=== PATIENT | female | born 1945 | race Caucasian/White ===

== ENCOUNTER 2016-11-21 17:44 | Emergency (ER) | payer SELFPAY ==
[~2016-11-21] VITALS: Ht 160 cm; Wt 58.0 kg
[2016-11-21 17:48] VITALS: Ht 160 cm; Wt 58.0 kg
[2016-11-21] MEDS ORDERED: POLY10DR19 BOTH EYES (18:03)
[2016-11-21] MEDS ORDERED: CETI10CA PO (18:03)
--- NOTE | 2016-11-21 18:20 | ERD ---
ER Documentation Chief Complaint Date/Time DATE: 11/21/16 TIME: 18:15 Chief Complaint RED ITCHY EYES HPI 71-year-old female with a past medical history of hypertension and diabetes who presents to the ED here with [id number] for bilateral eye itchiness 1 week. States that both of her eyes are itchy and she has watery discharge from her eyes. Denies headache or dizziness. Denies blurry vision and denies eye pain denies difficulty hearing or speaking. Denies syncopal episodes. Denies chest pain or cough or shortness of breath. Also complains of itchy throat and runny nose. Denies fever or chills. Her insurance is changed therefore she has not gone to her primary care provider for her symptoms. She states that her blood pressure and diabetes are within control. She denies polyuria or polydipsia or polyphagia. Denies abdominal pain, nausea, vomiting or diarrhea. She has no other complaints. Denies seizures or rashes per ROS All systems reviewed and are negative except as per history of present illness. Medications Home Meds Active Scripts Cetirizine Hcl* (Zyrtec*) 10 Mg Capsule, 10 MG PO DAILY, #30 TAB.CHEW Prov:JOHNNIE LEAL PA-C 11/21/16 Polymyxin B Sulfate-TMP* (Polymyxin B-TMP Eye Drops*) 10 Ml Drops, 1 DROP BOTH EYES QID for 7 Days, EA Prov:JOHNNIE LEAL PA-C 11/21/16 Allergies Allergies: Coded Allergies: No Known Allergy (Unverified , 11/21/16) PMhx/Soc Hx Cardiac Disorders: Yes (Hypertension) Hx Miscellaneous Medical Probl: Yes (Diabetes) Hx Alcohol Use: No Hx Substance Use: No Hx Tobacco Use: No Smoking Status: Never smoker FmHx Family History: No coronary disease, No diabetes, No other Physical Exam Vitals Vital Signs Date Time Temp Pulse Resp B/P Pulse Ox O2 Delivery O2 Flow Rate FiO2 11/21/16 17:48 98.2 63 16 134/63 99 Physical Exam GENERAL: Well-developed, well-nourished female. Appears in no acute distress. HEAD: Normocephalic, atraumatic. EYES: Pupils are equally reactive bilaterally. EOMs grossly intact. No conjunctival erythema. Bilateral hearing and yellow discharge. No proptosis. No pain with EOMs. ENT: Moist mucous membranes. No uvula deviation. No kissing tonsils. No exudates. Bilateral TMs clear. NECK: Supple. No lymphadenopathy or thyromegaly. No meningismus. negative kernig. negative brudinski. LUNG: Clear to auscultation bilaterally. No rhonchi, wheezing, rales or coarse breath sounds. HEART: Regular rate and rhythm. No murmurs, rubs or gallops. BACK: No midline tenderness. Extremities: Equal pulses bilaterally. No peripheral clubbing, cyanosis or edema. No unilateral leg swelling. NEUROLOGIC: Alert and oriented. Moving all four extremities. 5/5 strength in all extremities. Normal speech. Steady gait. SKIN: Normal color. Warm and dry. No rashes or lesions. Capillary refill < 2 seconds Procedures/MDM ER COURSE: I kept the patient and/or family informed of laboratory and diagnostic imaging results throughout the emergency room course. MEDICAL DECISION MAKING: This is a 71-year-old female who presents with bilateral eye itchiness and drainage 1 week. Vital signs were reviewed. Patient is afebrile. Patient is not hypoxic. She is nontoxic or ill-appearing. Patient's vitals are within normal limits. Patient likely has conjunctivitis and allergic rhinitis. Patient does not show signs of respiratory distress. Low suspicion for acute angle closure glaucoma, retinal detachment, arterial occlusion, hemorrhage, fracture, foreign body, ruptured globe, orbital cellulitis. I do not think further testing or laboratory studies this at this time as patient's examination is within normal limits. DISCHARGE: At this time, patient is stable for discharge and outpatient management with no new complaints during the ER course. Patient was sent home with Zyrtec and polymyxin drops and to follow-up with primary care provider in 2 days. Patient will be discharged home with instructions to recheck for new or worsening symptoms such as fever, nausea, weakness, LOC and to follow up with primary care in the next 1-2 days. Patient was advised to return to the ER for any new or worsening symptoms. Plan was discussed and patient and/or family understands and agrees. Home instructions were given. Departure Diagnosis: Primary Impression: Conjunctivitis Conjunctivitis type: unspecified Laterality: bilateral Qualified Code: H10.9 - Conjunctivitis of both eyes, unspecified conjunctivitis type Condition: Stable Patient Instructions: What Is Conjunctivitis? [facility] Usted se silva hecho un examen mdico de control que le indica que no est en misael condicin que requiera tratamiento urgente en el Departamento de Emergencia. Un estudio ms profundo y el tratamiento de mixon condicin pueden esperar sin ningn riesgo hasta que usted sea atendida/o en el consultorio de mixon mdico o misael cl shemar. Es responsabilidad suya arreglar misael roseanne para el seguimiento del simran. MANEJO DE CONDICIONES NO URGENTES EN EL FUTURO 1) Si usted tiene un mdico de atencin primaria: Usted debera llamar a mixon mdico de atencin primaria antes de venir al departamento de emergencia. Despus de las horas de consultorio, mixon doctor o mixon asociado/a est disponible por telfono. El mdico o enfermero de juan r en el servicio telefnico puede asesorarle por munira medio para atender el problema, o simran contrario se puede programar misael roseanne. 2) Si usted no tiene un mdico de atencin primaria: Llame al mdico o clnica de referencia que aparece abajo karlos las horas de consultorio para hacer misael roseanne para que le vean. CLINICAS: [facility] [phone] [facility] [phone] [facility] [phone] [facility] [phone] [place] [phone] [facility]. [phone] Additional Instructions: Llame al doctor MAANA y terrance misael ROSEANNE PARA DENTRO DE 1-2 COLUNGA.Dgale a la secretaria que nosotros le instruimos hacer esta roseanne.Avise o llame si mixon condicin se empeora antes de la roseanne. Regresa aqui si peor o no mejor. JOHNNIE LEAL PA-C Nov 21, 2016 18:20
== END 2016-11-21 18:04 | disposition home or self-care (01) ==
LOC: E/R 17:44
DX: H10.9 Unspecified conjunctivitis (principal); I10 Essential (primary) hypertension; E11.9 Type 2 diabetes mellitus without complications
CPT/HCPCS: 99284